=== PATIENT | male | born 1950 | race Asian ===

== ENCOUNTER 2022-11-04 02:05 | Inpatient (IN) | payer MEDICAID, MEDICARE ==
[~2022-11-04] VITALS: Ht 167.6 cm; Wt 67.6 kg
[2022-11-04 02:24] VITALS: BP_SYST 123
--- NOTE | 2022-11-04 02:25 | NUR ---
Patient to ER bed 06 to gown for evaluation. Side rails up. Report given to NAI WHITT.
[2022-11-04] MEDS ORDERED: NS 500 ML IV ONE (02:30)
[2022-11-04] MEDS ORDERED: ONDANSETRON HCL 4 MG/2 ML VIAL IVP ONE ×2 (02:30→05:00)
--- NOTE | 2022-11-04 02:30 | NUR ---
ER Dr.DELA AGUILAR at bedside examining patient.
[2022-11-04] MEDS ORDERED: MORPHINE 4 MG INJ. 4 MG/ML VIAL IVP ONE ×2 (02:45→03:30)
--- NOTE | 2022-11-04 02:45 | NUR ---
# 20 gauge angiocath placed to L HAND. Use of asceptic technique. Opsite placed over site. Blood return noted. Blood for lab drawn from site. Flushed with 10 cc of normal saline. No evidence of infiltration noted. Patient tolerated well.
[2022-11-04 02:53] LABS: BASOPHILS # (AUTO) 0.3 K/uL (0.0-0.2); BASOPHILS % (AUTO) 3.5 % (0.0-2.0); EOSINOPHILS # (AUTO) 0.1 K/uL (0.0-0.4); EOSINOPHILS % (AUTO) 0.5 % (0.0-4.0); HEMATOCRIT 46.7 % (36-54); HEMOGLOBIN 15.2 g/dL (14.0-18.0); LYMPHOCYTES # (AUTO) 1.1 K/uL (1.0-5.5); MEAN CORPUSCULAR HEMOGLOBIN 29 pg (27-31); MEAN CORPUSCULAR HGB CONC 33 % (32-36); MEAN CORPUSCULAR VOLUME 90 fL (79.0-98.0); MONOCYTES # (AUTO) 0.4 K/uL (0.0-1.0); MONOCYTES % (AUTO) 4.1 % (1.7-9.3); NEUTROPHILS # (AUTO) 7.5 K/uL (1.8-7.7); NEUTROPHILS % (AUTO) 79.9 % (40.0-70.0); PLATELET COUNT (AUTO) 144 K/uL (130-430); RED CELL DISTRIBUTION WIDTH 14.9 % (9.0-15.0); WHITE BLOOD COUNT (AUTO) 9.5 K/uL (4.8-10.8)
--- NOTE | 2022-11-04 03:00 | NUR ---
PER PT, UNABLE TO PROVIDE URINE SAMPLE AT THIS TIME DUE TO EXCRUTIATING ABD PAIN. dR. COLON AWARE. SUGGESTED STRAIGHT CATH, PER MD, NO NEED.
--- NOTE | 2022-11-04 03:04 | NUR ---
PT IS AA&OX4. AFEBRILE. NAD. DTR AT BEDSIDE. AMBULATORY. CONTINENT OF B & B. SAFE & HAZARD FREE ENVIRONMENT PROVIDED.
[2022-11-04 03:11] LABS: ANION GAP 10 (5-15); CALCIUM 9.5 mg/dL (8.4-11.0); CHLORIDE 102 mmol/L (98-107); CREATININE 0.74 mg/dL (0.55-1.30); GLUCOSE 166 mg/dL (70-99); UREA NITROGEN, BLOOD 17 mg/dL (8-21)
[2022-11-04 03:29] LABS: ALANINE AMINOTRANSFERASE 32 U/L (12-78); ALBUMIN 3.9 g/dL (3.4-4.8); ASPARTATE AMINOTRANSFERASE 20 U/L (10-37); LIPASE 113 U/L (73-393); TOTAL BILIRUBIN 0.7 mg/dL (0.0-1.0)
[2022-11-04] MEDS ORDERED: MORPHINE 2 MG/ML INJ. SYRINGE IVP ONE (04:15)
[2022-11-04] MEDS ORDERED: cefTRIAXone 1 GM in D5W 50 ML IV ONE (04:15)
[2022-11-04] MEDS ORDERED: cefTRIAXone 1 GM VIAL ONE (04:30)
--- NOTE | 2022-11-04 05:30 | NUR ---
PER DAUGHTER, SHE DOESN'T HAVE THE MEDICATION LIST AT THIS TIME AND DOESN'T KNOW IT AT THE TOP OF HER HEAD. PER DTR, SHE'LL BRING THE LIST OF MEDS LATER TODAY.
--- NOTE | 2022-11-04 06:56 | NUR ---
Admit bed requested Patient will be admitted to care of . Admitted to MED SURG unit. Diagnosis : CHOLECYSTITIS Inpatient :Yes Observation : No Orientation concerns or request close to nursing station :No Covid Status : NEG On vent or bipap :NO Isolation requirements :NO Needs a sitter :NO From Home :Yes Requires Dialysis :No Med Rec Completed : No
--- NOTE | 2022-11-04 07:08 | NUR ---
PT IN BED, ASLEEP. EASILY AROUSABLE TO VERBAL & TACTILE STIMULI. NAD. DENIES PAIN. W/ SL ON L HAND 20 G INTACT W/ NO S/S OF PHLEBITIS NOR INFILITRATION. SAFE & HAZARD FREE ENVIRONMENT PROVIDED. B & B CONTINENT. DTR AT BEDSIDE.
--- NOTE | 2022-11-04 07:12 | NUR ---
REPORT GIVEN TO NAI COON TO ASSUME CARE.
--- NOTE | 2022-11-04 07:15 | NUR ---
assumed patient care pt aox4 gcs 15 resting in room 6. daughter at bedside.
[2022-11-04] MEDS ORDERED: FEBU40TA PO (07:47)
[2022-11-04] MEDS ORDERED: ASPI-1155 PO (07:47)
[2022-11-04] MEDS ORDERED: METF-1069 PO (07:47)
[2022-11-04] MEDS ORDERED: SACU1TAB7 PO (07:47)
[2022-11-04] MEDS ORDERED: LORA10TA7 PO (07:47)
[2022-11-04] MEDS ORDERED: CARV25TA55 PO (07:47)
[2022-11-04] MEDS: D5/0.45 NS 1,000 ML IV SCH ×3 (08:01→20:51)
[2022-11-04] MEDS ORDERED: MORPHINE 2 MG/ML INJ. SYRINGE IVP PRN ×2 (08:45)
--- NOTE | 2022-11-04 09:30 | NUR ---
patient transported to [facility] room 120B
--- NOTE | 2022-11-04 09:30 | NUR ---
ADMISSION NOTE Received patient from ER via wheelchair. Patient admitted with diagnosis of Cholecystitis. Patient is awake, alert, oriented X 4. Patient oriented to hospital room, call light, toileting, pain management and safety-teach back done. Patient informed that Jose will be his nurse and that their room number is 120-B. Personal belongings checked and Belongings List documented. Call light within reach.
[2022-11-04 09:35] VITALS: BP_SYST 140
--- NOTE | 2022-11-04 09:35 | NUR ---
CONSULTATION PAGED/CALLED Reason for Consultation: [] CHOLECYSTITIS Person Who was Notified: [] MAEVE Consulting Physician: [] DR Segundo SAGE Architectural Modeler Specialty: [] GI Ordering Physician: [] DR ANDRADE
--- NOTE | 2022-11-04 09:39 | NUR ---
CONSULTATION PAGED/CALLED Reason for Consultation: [] CHOLECYSTITIS Person Who was Notified: [] GRANT Consulting Physician: [] DR Segundo PAT Composition Professor Specialty: [] GEN SURGEON Ordering Physician: [] DR ANDRADE
[2022-11-04 10:11] LABS: BILIRUBIN,URINE NEGATIVE (NEGATIVE); BLOOD, URINE 2+ (NEGATIVE); COLOR,URINE YELLOW (YELLOW); GLUCOSE,URINE 3+ (NEGATIVE); KETONES,URINE 1+ (NEGATIVE); LEUKOCYTE ESTERASE ,URINE NEGATIVE (NEGATIVE); NITRITE, URINE NEGATIVE (NEGATIVE); PROTEIN URINE NEGATIVE (NEGATIVE); UROBILINOGEN,URINE 0.2 (0.2-1.0)
[2022-11-04 10:17] LABS: CLARITY/URINE SLIGHTLY CLOUDY (CLEAR)
[2022-11-04] MEDS ORDERED: ONDANSETRON HCL 4 MG/2 ML VIAL IVP PRN (10:30)
[2022-11-04] MEDS ORDERED: INSULIN REGULAR, HUMAN 100 UNITS/ML, 3 ML VIAL (humuLIN R) SUBCUT PRN (10:30)
[2022-11-04] MEDS ORDERED: PANTOPRAZOLE SODIUM 40 MG/VIAL (PROTONIX) IVP ONE (10:30)
[2022-11-04] MEDS ORDERED: LORazepam 2 MG/ML VIAL IVP PRN (10:30)
[2022-11-04 10:51] VITALS: BP_SYST 140
[2022-11-04 11:29] LABS: BACTERIA,URINE FEW /HPF (None Seen); WBC,URINE NONE SEEN /HPF (0-3)
[2022-11-04 16:00] VITALS: BP_SYST 125
[2022-11-04] MEDS ORDERED: ACETAMINOPHEN 325 MG TABLET PO PRN (17:15)
--- NOTE | 2022-11-04 19:19 | NUR ---
CALLED [facility]. [phone]
--- NOTE | 2022-11-04 19:55 | NUR ---
PCR Test explained procedure to patient, he verbalized agreement and understanding. Collected sample and sent to lab
[2022-11-04 20:00] VITALS: BP_SYST 116
[2022-11-04 20:05] VITALS: BP_SYST 146
[2022-11-04] MEDS ORDERED: PANTOPRAZOLE SODIUM 40 MG/VIAL (PROTONIX) IVP SCH (21:00)
--- NOTE | 2022-11-04 21:25 | NUR ---
[facility] transfer center Dhaval from [facility] trans ctr calling to check on status of PCR test (still pending). call him back w/results, direct line [phone]
--- NOTE | 2022-11-04 22:35 | NUR ---
mitul from [facility] called and informed me that they are still waiting on pcr test so they can assign a bed and the pt will be going to a tele floor per the attending doctor Tammie the accepting doctor is dr Chakraborty. jaquelin sup here at [facility] followed up with pcr and we are still waiting for the results
--- NOTE | 2022-11-04 23:58 | NUR ---
[facility] LAWRENCE BIGGS WILL BE GOING TO 6TH FLOOR ROOM 68 FOR REPORT [phone]
--- NOTE | 2022-11-04 23:59 | NUR ---
MEDIC 1 SPOKE WITH TIFFANIE OPERATIONS PROFESSIONAL WILL BE [id number] AUTH IS [id number]
--- NOTE | 2022-11-05 01:01 | NUR ---
pt resting in bed, report called to Nani TRIMBLE
[2022-11-05 01:07] VITALS: BP_SYST 119
[2022-11-05 01:29] VITALS: BP_SYST 104
--- NOTE | 2022-11-05 01:50 | NUR ---
Pt in stable condition, medicated with Tylenol for temp of 100.2 F. departed with [facility] @0150.
[2022-11-05] MEDS ORDERED: FEBUXOSTAT PO SCH (09:00)
[2022-11-05] MEDS ORDERED: CARVEDILOL 25 MG TABLET (COREG) PO SCH (09:00)
[2022-11-05] MEDS ORDERED: ASPIRIN 81 MG TAB.CHEW PO SCH (09:00)
[2022-11-05] MEDS ORDERED: LORATADINE 10 MG TABLET PO SCH (09:00)
== END 2022-11-05 01:50 | disposition short-term general hospital (02) ==
LOC: SED 02:05 → SMU 06:52
PROVIDERS: ADMIT Preventive Medicine Preventive Medicine/Occupational Environmental Medicine; ATTEND Preventive Medicine Preventive Medicine/Occupational Environmental Medicine
DX: K80.00 Calculus of gallbladder with acute cholecystitis without obstruction (principal); R65.10 Systemic inflammatory response syndrome (SIRS) of non-infectious origin without acute organ dysfunction; I11.9 Hypertensive heart disease without heart failure; E11.65 Type 2 diabetes mellitus with hyperglycemia; E78.5 Hyperlipidemia, unspecified; I25.10 Atherosclerotic heart disease of native coronary artery without angina pectoris; Z20.822 Contact with and (suspected) exposure to COVID-19; Z95.0 Presence of cardiac pacemaker; Z95.1 Presence of aortocoronary bypass graft
CPT/HCPCS: 36415; 71045; 76376; 76705; 78226; 80053; 81000; 83690; 84484; 85025; 87040; 93005; 96361; 96365; 96375; 96376; 99285; A9537; C9113; J0696; J2270; J2405; U0003